=== PATIENT | female | born 1980 | race Caucasian/White ===

== ENCOUNTER 2018-04-19 08:38 | Emergency (ER) | payer OTHER, SELFPAY ==
[2018-04-19 08:39] VITALS: BP 148/93; PULSE 69; RESP 15; TEMP 36.4; O2SAT 99; BMI 31.1
--- NOTE | 2018-04-19 08:50 | CT_ITS ---
STUDY: CT ABDOMEN AND PELVIS WITHOUT CONTRAST REASON FOR EXAM: Female, 37 years old. Right flank pain RADIATION DOSAGE (If Supplied By Facility): CTDIvol = ( 9.98 ) mGy, DLP = ( 506.22 ) mGycm TECHNIQUE: Transaxial images were obtained from the dome of the diaphragm to the symphysis pubis without oral contrast, and without intravenous contrast. Sagittal and coronal images were reconstructed. Individualized dose optimization techniques were used for this CT. COMPARISON: None. FINDINGS: The visualized lung bases are unremarkable. The visualized portions of the heart are within normal limits. Normal liver. Normal gallbladder and extrahepatic biliary system. Normal spleen. Normal pancreas. Normal bilateral adrenal glands. Approximately 5 nonobstructive stones up to 7 mm noted in the right kidney. Right hydronephrosis and hydroureter. There is an obstructive 5 mm stone just proximal to the right UVJ. 2 nonobstructive stones up to 6 mm are noted in the left kidney. Normal visualized stomach. Normal small intestine. Normal colon. The appendix is visualized and appears normal. Normal abdominal aorta. Normal inferior vena cava. Normal retroperitoneum. Normal urinary bladder. Normal abdominal wall. Normal osseous structures. CT/Abdomen/Pelvis without Cont IMPRESSION: Bilateral renal stones. Right hydronephrosis and hydroureter with a distal stone just proximal to the right UVJ. Electronically Signed: Zander Butler DO at 10:25 EDT Tel [phone], Service support ,
--- NOTE | 2018-04-19 08:54 | ED.DCSUM_ITS ---
- ER Visit Summary Date of Service: 04/19/18 Chief Complaint: Right flank pain History of Present Illness: The patient is a 37 F who presents with right flank pain that began approximately 6 hours prior to arrival. Patient states the pain as a constant ache but is sharp at times. Patient states the pain improves slightly when she lays on her back. Patient denies any position of comfort. Patient states the pain is over the right lower flank area and radiates to the right groin. Patient admits to some dysuria but denies any hematuria. Patient admits to some urgency. Patient admits to some nausea but denies any vomiting. Patient states she has had a kidney stone in the past approximately a year and a half ago. Patient states this feels similar to that episode. Physical Examination: Vital signs are stable. Patient is afebrile. Patient is in no acute distress. Oral mucosa is pink and moist. Neck is supple. Trachea is midline. There is no JVD or lymphadenopathy noted. Heart was regular rate and rhythm. Lungs are clear and equal bilaterally. There is good respiratory effort noted. Abdomen is soft. There is some right lower quadrant and right lower flank tenderness. There is no rebound or guarding noted. Cranial nerves II through XII are intact. There are no focal motor or sensory deficits noted. The remaining physical exam is within normal limits. Test Results: CBC shows a leukocytosis of 22.4. Creatinine was slightly elev ated 1.22. Urinalysis showed occult blood of 10 but 0-5 white blood cells and 0-[address] scan shows a 5 mm calculus in the right distal ureter with hydronephrosis and hydroureter. There are several other renal calculi bilaterally. Emergency Department Course and Treatment: Patient was given IV fluids, Toradol, and Zofran here. Patient felt better on reevaluation. Patient states her pain has resolved. Patient was advised of her CT findings. Patient was given prescription for Naprosyn. Patient was instructed to follow-up with her primary care physician as scheduled. Patient was given urine strainers. Patient was instructed to return if worse in any way. Patient understood and was agreeable with the plan. All questions were answered. Disposition: Discharge home Impression: Right distal ureteral calculus This note was generated with [employer] dictation software. It may contain incorrect words, spelling, and punctuation that were not noted in review of the chart prior to signing ED Disposition - Plan for ED Patient: Disposition: Home or Assisted Living Chief Complaint: Flank Pain Diagnosis: Right distal ureteral calculus Instructions: ED Stone Renal W Colic Prescriptions: Naproxen [Naprosyn] 500 mg PO BID PRN #20 tab Referrals: Care Physician,No Primary [NON-STAFF] -
[2018-04-19] MEDS: 0.9% Normal Saline 1,000 ML 250 ML IV (09:06)
[2018-04-19] MEDS: Ketorolac 30 MG/ML Syringe IV (09:07)
[2018-04-19] MEDS: Ondansetron 4 MG/2 ML Vial IV (09:07)
[2018-04-19 09:11] LABS: Bacteria 0 SEEN /hpf (None Seen); Mucous, Urine 0 SEEN /hpf (<or=2+); Red Blood Cells-Urine 0 SEEN /hpf (0-5); White Blood Cells 0 SEEN /hpf (0-5)
[2018-04-19 09:18] LABS: Color, Urine Yellow (Yellow); Glucose, Dipstick Normal (Normal); Ketone-Dipstick Negative (Negative); Leukocyte Esterase-Dipstick Negative /ul (Negative); Nitrite-Dipstick Negative (Negative); Occult Blood-Urine 10 /ul (Negative); Protein-Dipstick Negative (Negative); Urine Bilirubin Dipstick Negative (Negative); Urine Clarity Sl. Cloudy (Clear); Urine Urobilinogen Normal (Normal)
[2018-04-19 09:21] LABS: Absolute Lymphocyte Count 0.84 X10^3/ul (0.83-4.51); Basophil# 0.02 X10^3/uL; Basophil% 0.1 % (0-1); Eosinophil# 0.01 X10^3/uL; Hematocrit 43.3 % (37-47); Hemoglobin 14.2 g/dl (12.0-15.0); Lymphocyte # 0.84 X10^3/ul (4.0); Lymphocyte % 3.7 % (19-41); Mean Corp Hgb Conc 32.8 g/gl (32-36); Mean Corpuscular Hgb 27.7 pg (27.0-32.0); Mean Corpuscular Volume 84.6 fL (81-99); Monocyte# 0.57 X10^3/uL; Monocyte% 2.5 % (0-10); Neutrophil # 20.95 X10^3/uL (2.7-7.7); Neutrophil % 93.6 % (47-70); Platelet Count 287 K/mm3 (150-450); RBC Distribution Width CV 13.2 % (11.6-14.6); RBC Distribution Width SD 40.7 fl (35.1-43.9); Red Blood Count 5.12 M/mm3 (4.2-5.4); White Blood Count 22.4 K/mm3 (4.4-11.0)
[2018-04-19 09:25] LABS: Amorphous Sediment 1+; Squamous Epithelial Cells - UA 0-5 SEEN /hpf (5-10)
[2018-04-19 09:26] LABS: Anion Gap 7 (5-15); BUN 18 mg/dL (7-18); BUN/Creat Ratio 14.8 RATIO (10-20); Chloride 108 mmol/L (98-107); Creatinine, Serum 1.22 mg/dL (0.55-1.02); EST Glomerular Filtration Rate 53 mL/min (>60); Est Glom Filt Rate - Afr Amer 64 mL/min (>60); Estimated Creatinine Clearance 52.23 ml/min; Glucose 135 mg/dL (74-106); Potassium 3.6 mmol/L (3.5-5.1); Sodium Level 137 mmol/L (136-145)
[2018-04-19 09:45] LABS: Differential Indicated SCAN CRITERIA MET; POSITIVE COUNT NO; POSITIVE DIFFERENTIAL YES; POSITIVE MORPHOLOGY YES
[2018-04-19 09:53] LABS: Pregnancy, Serum, hCG Quali. NEGATIVE Negative (0-9 Nonpreg)
[2018-04-19 10:11] VITALS: RESP 14
[2018-04-19 11:14] VITALS: BP 138/81; PULSE 84; RESP 18; O2SAT 99
== END 2018-04-19 11:14 | disposition home or self-care (01) ==
PROVIDERS: Emergency Provider Emergency Medicine; Family Provider Student in an Organized Health Care Education/Training Program; PCP Student in an Organized Health Care Education/Training Program
DX: N13.2 Hydronephrosis with renal and ureteral calculous obstruction (principal); Z87.442 Personal history of urinary calculi; Z79.899 Other long term (current) drug therapy
CPT/HCPCS: 74176; 80048; 81001; 84703; 85025; 96361; 96374; 96375; 99283; J7030; A4216; J2405

== ENCOUNTER → 2019-01-11 15:32 | Outpatient (CLI) | payer OTHER, SELFPAY ==
--- NOTE | 2019-01-11 15:36 | RAD_ITS ---
STUDY: X-RAY - ABDOMEN/PELVIS REASON FOR EXAM: Female, 38 years old. Bilateral kidney stones TECHNIQUE: KUB COMPARISON: CT 04/19/2018. FINDINGS: Normal visualized lung bases. There is an unremarkable bowel gas pattern. There is no demonstrated free abdominal air. There are bilateral renal calculi. Large calculi within the kidney measure 7 mm and 5 mm unchanged. Multiple right renal calculi also similar to prior study largest measuring 8 mm.. There are no visualized pelvic calcifications. Normal soft tissue structures. Normal visualized osseous structures. RAD/Abdomen Single View IMPRESSION: Bilateral renal nephrolithiasis Electronically Signed: Jean-Pierre Pedraza, at 16:26 EDT Tel , Service support ,
[2019-01-11 17:40] LABS: Anion Gap 7 (5-15); BUN 16 mg/dL (7-18); BUN/Creat Ratio 18.7 RATIO (10-20); Calcium,Total 9.1 mg/dL (8.5-10.1); Chloride 105 mmol/L (98-107); Creatinine, Serum 0.85 mg/dL (0.55-1.02); EST Glomerular Filtration Rate 79 mL/min (>60); Est Glom Filt Rate - Afr Amer 96 mL/min (>60); Glucose 87 mg/dL (74-106); Magnesium 2.3 mg/dL (1.6-2.6); Potassium 3.8 mmol/L (3.5-5.1); Sodium Level 139 mmol/L (136-145)
[2019-01-11 17:50] LABS: PTHIN 88.3 pg/mL (18.4-80.1)
== END ==
PROVIDERS: Family Provider Student in an Organized Health Care Education/Training Program; PCP Student in an Organized Health Care Education/Training Program; Referring Provider Urology; Visit Provider Urology
DX: N20.0 Calculus of kidney (principal)
CPT/HCPCS: 36415; 74018; 80048; 83735; 83970

== ENCOUNTER 2019-02-10 11:24 | Day surgery (SDC) | payer OTHER, SELFPAY ==
--- NOTE | 2019-02-10 11:58 | RAD_ITS ---
STUDY: X-RAY - ABDOMEN/PELVIS REASON FOR EXAM: Female, 38 years old. Renal stones TECHNIQUE: Single AP view of the abdomen / pelvis. COMPARISON: 01/11/2019 FINDINGS: There is an unremarkable bowel gas pattern. There is no demonstrated free abdominal air. There is no significant interval change in the number and size of bilateral renal stones. There are 3 stones overlying the right renal lower pole measuring up to 7 mm. There are 2 stones overlying the left renal lower pole measuring up to 6 mm. There are no stones overlying the ureteral course or urinary bladder. Normal soft tissue structures. Normal visualized osseous structures. RAD/Abdomen Single View IMPRESSION: No significant interval change as described above. Electronically Signed: Peter Lin, at 13:35 EDT Tel , Service support ,
[2019-02-10 12:23] LABS: Internal QC Validated? YES +Cl - CLEAR BKGD
[2019-02-10 12:25] VITALS: BP 125/91; PULSE 84; RESP 16; TEMP 36.8; O2SAT 100; BMI 32.5
[2019-02-10 12:29] LABS: Pregnancy, Urine Negative Negative
--- NOTE | 2019-02-10 13:58 | DCINST_ITS ---
Discharge Diet: Light diet - advance as tolerated Discharge Activity: Return to Normal Activity Call your doctor if your incision/area has: Sudden Increased Bleeding Call your doctor if you observe: Fever of 101 or Higher, Uncontrolled pain Suture Line Care: Avoid Pulling/Pushing, Avoid Pinching/Bending Allergies/Adverse Reactions: Allergies topiramate [From Topamax] Adverse Reaction (Verified 02/03/19 10:59) Other HAIR LOSS Medications to take at Discharge Lorcaserin HCl [Belviq Xr] 20 mg PO DAILY 02/03/19 Multivitamin [Daily Multiple Vitamin] 1 ea PO DAILY 02/03/19 Norethindrone 0.35 mg PO DAILY 02/03/19 Hydrocodone/Acetaminophen [[place] 5-325 Tablet] 1 ea PO Q4H PRN PRN 5 Days #14 tab 02/10/19 The following prescriptions were given: Hydrocodone/Acetaminophen [[place] 5-325 Tablet] 1 ea PO Q4H PRN PRN 5 Days #14 tab PRN Reason: Pain Prescription Printed Primary Care Physician: Jose Soria DO [Primary Care Provider] - Test Results: Test results from this visit will be discussed in further detail at your follow- up appointment, if applicable. Please Follow Up With: Ke Barker MD When: in 2 weeks, please call to make an appointment.
[2019-02-10] MEDS: Lactated Ringers 1,000 ML 75 ML IV (14:00)
[2019-02-10] MEDS: Cefazolin 2 GM in 0.9% Normal Saline 100 ML IV (14:06)
--- NOTE | 2019-02-10 14:42 | PCM.OPRPT ---
Report of Operation Date of Procedure: 02/10/19 Pre-Operative Diagnosis: renal calculi. Right Post-Operative Diagnosis: The same Surgery/Procedure Performed:: Right extracorporeal shockwave lithotripsy Description of Surgical Findings:: 38-year-old female taken back to the operating room today we can proceed with shockwave lithotripsy treatment of the stones in the right kidney. She was taken back to the operating room at the smooth induction of general anesthesia she was placed supine on the lithotripter table, under fluoroscopy fluoroscopic guidance we identified the stone in the lower pole the right kidney we then delivered shockwave therapy to the stones at a rate of 90 power up to 6 kV. After about 1500 shockwaves of stones were broken up to a significant dust cloud and then we increased our rate 120 Hz. And then decreased energy at about 5 kV. Delivered a total of 3000 shockwaves of the kidney stones broke up successfully. Plan to see her back in a few weeks with a KUB and then will plan for treatment of the other side with shockwave lithotripsy at a later date. Type of Anesthesia:: General Drains: none - Admit VTE Documentation VTE Present on Admission: No VTE Mechan Device Prophylaxis: SCD's
[2019-02-10 14:51] VITALS: BP 125/91; BP 140/73; PULSE 84; RESP 14; TEMP 36.4; O2SAT 98
[2019-02-10 15:00] VITALS: BP 125/91; BP 135/87; PULSE 84; RESP 14; O2SAT 99
[2019-02-10] MEDS: Ketorolac 15 MG/ML Vial IV (15:02)
[2019-02-10 15:05] VITALS: BP 122/83; BP 125/91; PULSE 81; RESP 16; O2SAT 99
[2019-02-10 15:09] VITALS: BP 125/91; BP 142/82; PULSE 78; RESP 16; TEMP 36.4; O2SAT 98
[2019-02-10 15:33] VITALS: BP 125/91
== END 2019-02-10 15:45 | disposition home or self-care (01) ==
LOC: SDC 11:25 → AC 11:52
PROVIDERS: Anesthesiology; Family Provider Student in an Organized Health Care Education/Training Program; PCP Student in an Organized Health Care Education/Training Program; Referring Provider Urology; Visit Provider Urology
PROC: (CPT 50590; principal; 2019-02-10 13:15)
DX: N20.0 Calculus of kidney (principal); Z87.442 Personal history of urinary calculi; Z85.820 Personal history of malignant melanoma of skin
CPT/HCPCS: 00873; 50590; 74018; 81025; J7120; J2405

== ENCOUNTER 2019-02-19 11:42 | Day surgery (SDC) | payer OTHER, SELFPAY ==
[2019-02-19] VITALS (8 sets, daily range): BP systolic 133–149; BP diastolic 89–116; PULSE 57–80; RESP 16; TEMP 36.1–36.7; O2SAT 94–100; BMI 33.3
[2019-02-19 12:13] LABS: Internal QC Validated? YES +Cl - CLEAR BKGD; Pregnancy, Urine Negative Negative
[2019-02-19] MEDS: Lactated Ringers 1,000 ML 75 ML IV ×2 (12:38→15:56)
[2019-02-19] MEDS: Cefazolin 2 GM in 0.9% Normal Saline 100 ML IV (14:20)
--- NOTE | 2019-02-19 14:55 | HP.PCM_ITS ---
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 Lives: Alone Smoking Status: Never smoker Tobacco Use: Non-smoker - *Family History Maternal History Items: No pertinent history VTE Information - Inpt Only VTE Present on Admission: No VTE Mechan Device Prophylaxis: SCD's - Physical Exam General: Alert, Oriented x3, Cooperative HEENT: Atraumatic, PERRLA, EOMI, Normocephalic Neck: Supple, No JVD, Negative Carotid Bruits Lungs: Clear to auscultation, Normal air movement Cardiovascular: Regular rate, No murmurs Abdomen: Bowel Sounds Present, Soft, Non Tender Extremities: No edema, Capillary Refill Less than 3 Seconds Skin: No rashes, No breakdown Musculoskeletal: No Tenderness to Palpation of Joints or Extremities Neurological: Cranial nerves II-XII grossly intact Psych/Mental Status: Normal Affect, Appropriate Vital Signs Temp Pulse Resp BP Pulse Ox 98.1 F 72 16 133/89 H 97 02/19/19 12:24 02/19/19 12:24 02/19/19 12:24 02/19/19 12:24 02/19/19 12:24 Oxygen Delivery Method Room Air Weight: 85.4 kg Body Mass Index (BMI) 33.3 Intake and Output for Last 24 Hours 02/17/19 02/18/19 02/19/19 23:59 23:59 23:59 Intake Total 110 / 110 Balance 110 / 110 Laboratory Tests Past 24 Hrs 02/19/19 12:03 Urine Test Negative Assessment/Plan PLan for left ESWL
--- NOTE | 2019-02-19 15:08 | PCM.OPRPT ---
Report of Operation Date of Procedure: 02/19/19 Pre-Operative Diagnosis: Left renal calculi Post-Operative Diagnosis: Same Surgery/Procedure Performed:: Left extracorporeal shockwave lithotripsy Description of Surgical Findings:: 38-year-old female with multiple stones the lower pole the left kidney today we are going to proceed with shockwave lithotripsy she just had her right side treated a few weeks ago which broke up very successfully. We plan to treat the left side and not place a stent . 38-year-old female taken back to the operating room at the smooth induction of anesthesia he was placed supine on the table we look localized the stone in the left kidney under fluoroscopy we identified the stones. We then proceeded with shockwave lithotripsy the stones were placed in the F2 focal point of the lithotripter machine a total of 3000 shockwaves delivered a rate of 90-120, Power from 4 kV to 7 kV and the stones appeared to fracture successfully at the end of the treatment cycle. No stent was necessary patient anesthetic was reversed taken back to PACU good condition we will see her back in a few weeks with a KUB. Type of Anesthesia:: General Drains: none - Admit VTE Documentation VTE Present on Admission: No VTE Mechan Device Prophylaxis: SCD's
== END 2019-02-19 17:01 | disposition home or self-care (01) ==
LOC: SDC 11:42 → AC 11:43
PROVIDERS: Anesthesiology; Family Provider Student in an Organized Health Care Education/Training Program; PCP Student in an Organized Health Care Education/Training Program; Referring Provider Urology; Visit Provider Urology
PROC: (CPT 50590; principal; 2019-02-19 13:15)
DX: N20.0 Calculus of kidney (principal); Z87.442 Personal history of urinary calculi; Z85.828 Personal history of other malignant neoplasm of skin; Z79.899 Other long term (current) drug therapy
CPT/HCPCS: 50590; 81025; J7120; J2405

== ENCOUNTER → 2019-03-11 | Outpatient (CLI) | payer OTHER, SELFPAY ==
[2019-02-19 12:24] VITALS: BMI 33.3
--- NOTE | 2019-03-11 15:17 | RAD_ITS ---
STUDY: X-RAY - ABDOMEN/PELVIS REASON FOR EXAM: Female, 38 years old. Bilateral kidney stones. TECHNIQUE: Single AP view of the abdomen / pelvis. COMPARISON: 02/10/2019. FINDINGS: Normal visualized lung bases. There is an unremarkable bowel gas pattern. There is no demonstrated free abdominal air. The visualized liver, spleen and kidneys are grossly normal in size and morphology. No renal stones or ureteral stones are seen. Normal soft tissue structures. Normal visualized osseous structures. RAD/Abdomen Single View IMPRESSION: Normal x-ray examination of the abdomen and pelvis. No evidence for renal or ureteral stones. Electronically Signed: Kvng Jacques MD at 21:48 EDT , Service support ,
[2019-03-22 13:09] LABS: Ca Oxalate, Monohydrate 95 % (.)
== END | disposition home or self-care (01) ==
LOC: RAD.FUTURE 15:15
PROVIDERS: Family Provider Student in an Organized Health Care Education/Training Program; PCP Student in an Organized Health Care Education/Training Program; Referring Provider Urology; Visit Provider Urology
DX: N20.0 Calculus of kidney (principal)
CPT/HCPCS: 74018; 82360

== ENCOUNTER → 2020-03-01 11:46 | Outpatient (CLI) | payer OTHER, SELFPAY ==
[2020-02-29 16:50] VITALS: BMI 33.3
[2020-03-01 12:05] LABS: Bacteria 0 SEEN /hpf (None Seen); Mucous, Urine 0 SEEN /hpf (<or=2+); Squamous Epithelial Cells - UA 0 SEEN /hpf (5-10)
[2020-03-01 12:16] LABS: Color, Urine Yellow (Yellow); Glucose, Dipstick Normal (Normal); Ketone-Dipstick Negative (Negative); Leukocyte Esterase-Dipstick 500 /ul (Negative); Nitrite-Dipstick Negative (Negative); Occult Blood-Urine 250 /ul (Negative); Protein-Dipstick 15 mg/dl (Negative); Specific Gravity, Urine 1.015 (1.002-1.030); Urine Bilirubin Dipstick Negative (Negative); Urine Clarity Clear (Clear); Urine Urobilinogen Normal (Normal)
[2020-03-01 12:25] LABS: Red Blood Cells-Urine 25-50 SEEN /hpf (0-5); White Blood Cells 50-100 SEEN /hpf (0-5)
== END ==
PROVIDERS: PCP Student in an Organized Health Care Education/Training Program; Referring Provider Physician Assistant Surgical; Visit Provider Physician Assistant Surgical
DX: R30.0 Dysuria (principal)
CPT/HCPCS: 81001; 87077; 87086; 87088; 87186

== ENCOUNTER → 2020-04-06 | Outpatient (CLI) | payer OTHER, SELFPAY ==
[2020-02-29 16:50] VITALS: BMI 33.3
--- NOTE | 2020-04-06 16:34 | RAD_ITS ---
STUDY: X-RAY - ABDOMEN/PELVIS REASON FOR EXAM: Female, 39 years old. CALCULUS OF KIDNEY. ANNUAL CHECK UP. NO KNOWN STONES CURRENTLY. NO SYMPTOMS TECHNIQUE: Single AP view of the abdomen / pelvis. COMPARISON: 03/11/2019 FINDINGS: Normal visualized lung bases. There is an unremarkable bowel gas pattern. Intrauterine device within the pelvis. The visualized liver, spleen and kidneys are grossly normal in size and morphology. Normal soft tissue structures. Normal visualized osseous structures. RAD/Abdomen Single View IMPRESSION: Normal x-ray examination of the abdomen and pelvis. No obvious renal or ureteral stone. Electronically Signed: Ankit Comer MD at 16:53 EDT Tel , Service support ,
== END | disposition home or self-care (01) ==
LOC: RAD 16:14
PROVIDERS: PCP Student in an Organized Health Care Education/Training Program; Visit Provider Nurse Practitioner Adult Health
DX: N20.0 Calculus of kidney (principal)
CPT/HCPCS: 74018

== ENCOUNTER 2021-10-29 11:04 | Outpatient (RCR) | payer OTHER, SELFPAY | END 2021-11-27 23:59 | LOC: NS 11:04 | PROVIDERS: PCP Student in an Organized Health Care Education/Training Program; Visit Provider Nurse Practitioner Family | DX: Z71.3 Dietary counseling and surveillance (principal); E66.01 Morbid (severe) obesity due to excess calories; Z68.41 Body mass index [BMI] 40.0-44.9, adult | CPT/HCPCS: 97802 ==

== ENCOUNTER → 2023-03-28 | Outpatient (CLI) | payer OTHER, SELFPAY ==
--- NOTE | 2023-03-28 16:31 | US_ITS ---
EXAM: US RETROPERITONEAL LIMITED, RENAL CLINICAL INDICATION: UTI TECHNIQUE: Limited grayscale and color Doppler sonographic evaluation of the retroperitoneum was performed. COMPARISON: No relevant prior studies available. FINDINGS: RIGHT KIDNEY: The right kidney measures 10.7 cm in length. 6 mm nonobstructing right renal calculus in a lower pole calyx. Right renal cysts, the largest measuring 2.3 cm for which no follow-up is indicated. No perinephric collection is demonstrated. LEFT KIDNEY: The left kidney measures 11.1 cm in length. There are at least two 4 mm calyceal stones identified in the interpolar region of the left kidney. No hydronephrosis. 2.4 cm left renal cyst for which no follow-up is indicated. No perinephric collection is demonstrated. BLADDER: 5 mm urinary bladder wall which is not completely distended measuring 101 mL. Bilateral ureteral jets are visualized. US/Kidney and Bladder IMPRESSION: 1. 6 mm nonobstructing right renal calculus in a lower pole calyx. No hydronephrosis. 2. There are at least two 4 mm calyceal stones identified in the interpolar region of the left kidney. No hydronephrosis. 3. Right renal cysts, the largest measuring 2.3 cm for which no follow-up is indicated. 4. 2.4 cm left renal cyst for which no follow-up is indicated. Electronically Signed: Diogenes Sutton DO at 20:19 EDT ,
== END | disposition home or self-care (01) ==
LOC: US 16:31
PROVIDERS: PCP Student in an Organized Health Care Education/Training Program; Referring Provider Urology; Visit Provider Urology
DX: N39.0 Urinary tract infection, site not specified (principal)
CPT/HCPCS: 76770

== ENCOUNTER → 2023-04-11 | Outpatient (CLI) | payer OTHER, SELFPAY ==
--- NOTE | 2023-04-11 17:26 | CT_ITS ---
EXAM: CT ABDOMEN AND PELVIS WITHOUT INTRAVENOUS CONTRAST CLINICAL INDICATION: KIDNEY STONES TECHNIQUE: Helically acquired images were obtained of the abdomen and pelvis without intravenous contrast. This CT exam was performed using one or more of the following dose reduction techniques: automated exposure control, adjustment of the mA and/or kV according to patient size, and/or use of iterative reconstruction technique. COMPARISON: Renal ultrasound, 03/28/[address] abdomen and pelvis, 04/19/2018. FINDINGS: LOWER THORAX: Minimal lingular scarring or atelectasis. No cardiomegaly. No significant pericardial effusion. ABDOMEN: LIVER: Diffuse low-attenuation throughout the liver without focal hepatic abnormality. GALLBLADDER AND BILE DUCTS: No significant abnormality. No calcified gallstones. No gallbladder distention or wall edema. No intra- or extrahepatic biliary ductal dilation. PANCREAS: No significant abnormality. No focal cystic mass. SPLEEN: No significant abnormality. Normal size without focal cystic or solid mass. ADRENALS: No significant abnormality. No nodules. KIDNEYS AND URETERS: 3 mm right lower pole calyceal stone and 2 to 3 mm left lower pole calyceal stone. No hydronephrosis. There is a cyst in the lower pole of the right kidney, unchanged in size with thin rim of calcification. No ureteral stone is present on either side. STOMACH AND BOWEL: No significant abnormality. No stomach or bowel distention. No focal inflammatory change. PELVIS: APPENDIX: Normal appendix in the right lower quadrant. BLADDER: No significant abnormality. REPRODUCTIVE: An IUD is present positioned in the lower uterine segment. ABDOMEN and PELVIS: INTRAPERITONEAL SPACE: No significant abnormality. No ascites or other fluid collection. No free air. BONES/JOINTS: Degenerative changes in the spine. No suspicious lytic or blastic abnormality. SOFT TISSUES: No significant abnormality. No discrete abdominal or pelvic wall hernia. VASCULATURE: No significant abnormality. Abdominal aorta is non-dilated. LYMPH NODES: No significant abnormality. No enlarged lymph nodes. CT/Abdomen/Pelvis without Cont IMPRESSION: 1. Bilateral nephrolithiasis. No ureteral stone or hydronephrosis. 2. Fatty liver. 3. An IUD is present positioned in the lower uterine segment. 4. There is a cyst in the lower pole of the right kidney, unchanged in size with thin rim of calcification. Given stability since 2018, this is likely benign. ACR White Paper guidelines (Herts, et al. JACR 2018; 15(2):264-273) suggest no follow-up is necessary. Electronically Signed: Diogenes Sutton DO at 23:56 EDT ,
--- NOTE | 2023-04-11 17:30 | RAD_ITS ---
EXAM: XR ABDOMEN, 1 VIEW CLINICAL INDICATION: KIDNEY STONES TECHNIQUE: Frontal supine view of the abdomen/pelvis. COMPARISON: CT abdomen and pelvis on the same date. FINDINGS: LOWER THORAX: No acute pathology. GASTROINTESTINAL TRACT: No significant abnormality. Non-obstructive. No bowel or stomach distention. ORGANS: Normal as visualized. No organomegaly. No abnormal calcifications. No definite correlate for the nephrolithiasis demonstrated on comparison CT. BONES/JOINTS: Degenerative changes in the spine. SOFT TISSUES: No acute pathology. OTHER FINDINGS: An IUD is present. RAD/Abdomen Single View IMPRESSION: No definite correlate for the nephrolithiasis demonstrated on comparison CT. Electronically Signed: Diogenes Sutton DO at 23:56 EDT ,
== END | disposition home or self-care (01) ==
LOC: CT 17:25
PROVIDERS: PCP Student in an Organized Health Care Education/Training Program; Referring Provider Urology; Visit Provider Urology
DX: N20.0 Calculus of kidney (principal)
CPT/HCPCS: 74018; 74176